=== PATIENT | male | born 1945 | race Hispanic/Latino ===

== ENCOUNTER → 2018-03-25 | Day surgery (SDC) | payer MEDICARE, OTHER ==
--- NOTE | 2018-03-23 16:00 | Diagnostic Imaging Report ---
PROCEDURE: Frontal and lateral views of the chest. COMPARISON: 06/11/10 INDICATIONS: PRE-OPERATIVE CHEST X-RAY FOR KIDNEY STONES FINDINGS: Lines/tubes: None. Lungs: The lungs are well inflated and clear. There is no evidence of pneumonia or pulmonary edema. Pleura: There is no pleural effusion or pneumothorax. Heart and mediastinum: The heart and the mediastinum are normal. Bones: No acute bony abnormality. IMPRESSION: 1. No acute cardiopulmonary disease. Dictated by: Ra Cornelius M.D. on 03/23/2018 at 16:03 Electronically approved by: Ra Cornelius M.D. on 03/23/2018 at 16:03
[2018-03-23 16:28] LABS: BASOPHILS # (AUTO) 0.1 (0.0-0.1); BASOPHILS % 0.7 % (0.0-1.0); EOSINOPHILS # (AUTO) 0.1 (0.0-0.4); EOSINOPHILS % 1.5 % (0.0-6.0); HEMATOCRIT 40.8 % (38.2-49.6); HEMOGLOBIN 14.3 g/dL (14.0-18.0); LYMPHOCYTES # (AUTO) 2.1 (1.0-3.2); LYMPHOCYTES % 25.7 % (18.0-39.1); MEAN CORPUSCULAR HEMOGLOBIN 31.6 pg (28-32); MEAN CORPUSCULAR VOLUME 90.1 fL (81-99); MONOCYTES # (AUTO) 0.7 (0.2-0.8); MONOCYTES % 8.7 % (4.4-11.3); NEUTROPHILS # (AUTO) 5.1 (2.1-6.9); NEUTROPHILS % 62.8 % (38.7-80.0); PLATELET COUNT 143 x10e3/uL (140-360); RED BLOOD COUNT 4.53 x10e6/uL (4.3-5.7); RED CELL DISTRIBUTION WIDTH 12.5 % (11.7-14.4)
[2018-03-23 16:43] LABS: CALCIUM 9.2 mg/dL (8.4-10.2); CREATININE, SERUM 1.5 mg/dL (0.72-1.25)
[~2018-03-25] MED LIST: AMLODIPINE BESYL5 MG PO; ASPIRIN325 M2 PO; BENAZEPRIL HCL10 MG PO; CEFTRIAXONE SOD 1 GM VIAL ONE; DEXAMETHASONE SOD PHOS INJ 4 MG/ML VIAL ONE; FENTANYL CITRATE/PF 100MCG/2 ML INJ ONE; GLIPIZIDE10 MG; GLYCOPYRROLATE INJ 1MG/ 5 ML SYR ONE; IOPAMIDOL 610MG/1ML 300 MG/ML VIAL IV ONE; LANTUS INSULIN; LIDOCAINE HCL 2% LOCAL INJ 5 ML SDV VIAL INJ ONE; ONDANSETRON HCL INJ 2 MG/ML VIAL ONE; PRANDIN2 MG; PROPOFOL IV EMULSION 10 MG/ML 20 ML VIAL ONE; SEVOFLURANE INHAL SOLN 250 ML PEN BTL ONE; TAMSULOSIN HCL0.4 MG; Z.0.METOPROLOL SUCC2 PO; Z.0.NIASPAN500 MG PO; Z.2.METFORMIN HCL500 PO; Z.4.AMLODIPINE-BEN1 PO; [UNRECOGNIZED DRUG - OTHER] TD; doxazosin
--- NOTE | 2018-03-26 08:40 | Operative Report ---
DATE OF PROCEDURE: March 25, 2018 PREOPERATIVE DIAGNOSIS: Right kidney stone, lower pole. POSTOPERATIVE DIAGNOSIS: Right parenchymal calcification. PROCEDURES 1. Right-sided ureteroscopy with dilation of the ureter. 2. Supervision of fluoroscopy. 3. Interpretation of retrograde ureteropyelography. ANESTHESIA: General. ESTIMATED BLOOD LOSS: Minimal. COMPLICATIONS: None. INDICATIONS FOR PROCEDURE: Mr. Grace is a 72-year-old male who has had a large right-sided kidney stone, and underwent lithotripsy with some fragmentation and decrease in the size of the stone. He now presents for ureteroscopy. He voiced underwent of the options, alternatives, risks and benefits, and the fact that the stent is a temporary indwelling device that must be removed, and the failure to do so could lead to encrustation, infection, inflammation, atrophy, loss of the kidney, and even . PROCEDURE IN DETAIL: After informed consent was obtained, the patient was taken to the operating suite. He was placed supine on the operating table. He underwent general anesthesia by the anesthesia service. He had been given prophylactic antibiotics. He was placed in the dorsal lithotomy position, and sterilely prepped and draped in a standard fashion for cystoscopy. A 22.5-Urdu cystoscope was inserted per urethra. There was an enlarged prostate noted with an elevated bladder neck. Panendoscopy of the bladder revealed no tumors and no stones. Both ureteral orifices were within normal anatomic location and position and seen to efflux clear urine. Attention was turned to the right ureteral orifice and catheterized with a guidewire. The 2nd safety wire was introduced. The ureter was dilated with the dilator sheath. The ureteroscope was then advanced over one of the wires to the level of the collecting system. A retrograde pyelogram was performed. It revealed that the calcification seen in the lower pole of the kidney was in the parenchyma and not in the collecting system. The collecting system was mapped. However, there were a few Gio's plaques seen. No other renal calculi available for lithotripsy at this time with no stones in the collecting system. The scope was withdrawn. The safety wire was removed. Bladder was drained. The patient was awakened from anesthesia and transported to the recovery room in excellent condition with no untoward effects noted. SUPERVISION OF FLUOROSCOPY, INTERPRETATION OF RETROGRADE URETERAL PYELOGRAPHY: I was present throughout the entire procedure and I supervised the use of fluoroscopy as there was no radiologist present at any time. Attention was turned toward the right. The ureter was catheterized with the ureteroscope, and retrograde pyelogram was performed through the scope revealing a parenchymal calcification outside the collecting system. Job#: [id number]
== END | disposition home or self-care (01) ==
LOC: OR 06:30
PROVIDERS: ATTEND Urology
DX: N28.89 Other specified disorders of kidney and ureter (principal); N40.0 Benign prostatic hyperplasia without lower urinary tract symptoms; I10 Essential (primary) hypertension; E78.5 Hyperlipidemia, unspecified; E11.9 Type 2 diabetes mellitus without complications; Z01.810 Encounter for preprocedural cardiovascular examination; Z01.812 Encounter for preprocedural laboratory examination; Z01.818 Encounter for other preprocedural examination; Z79.4 Long term (current) use of insulin; Z87.891 Personal history of nicotine dependence; Z84.1 Family history of disorders of kidney and ureter
CPT/HCPCS: 36415 ×2; 52351; 71046; 74420; 80048; 82948; 85025; 93005; C1766; J0696; J1100; J2001; J2405; J3490; Q9967